=== PATIENT | male | born 1995 | race Caucasian/White ===

== ENCOUNTER 2023-12-29 06:30 | Day surgery (SDC) | payer OTHER ==
[~2023-12-29] VITALS: Ht 175.3 cm; Wt 85.4 kg
[2023-12-29] VITALS (7 sets, daily range): BP systolic 101–127; BP diastolic 56–84; PULSE 52–60; TEMP 97.3–97.8
[~2023-12-29 06:30] MED LIST: PRILOSEC 20MG20 MG PO
[2023-12-29] MEDS ORDERED: Famotidine 20 MG TAB PO SCH (07:00)
[2023-12-29] MEDS ORDERED: LR 1,000 ML IV SCH (07:00)
[2023-12-29] MEDS ORDERED: fentaNYL 50 MCG/ML 2 ML VIAL ONE ×2 (07:29→09:02)
[2023-12-29] MEDS ORDERED: NS 10 ML IV ONE (07:29)
[2023-12-29] MEDS ORDERED: Ondansetron 4 MG/2 ML VIAL ONE (07:29)
[2023-12-29] MEDS ORDERED: dexAMETHasone 10 MG/ML VIAL ONE (07:29)
[2023-12-29] MEDS ORDERED: fentaNYL 50 MCG/ML 2 ML VIAL IV PRN ×2 (08:45)
[2023-12-29] MEDS ORDERED: hydrALAZINE 20 MG/ML 1 ML VIAL IV PRN (08:45)
[2023-12-29] MEDS ORDERED: droPERidol 2.5 MG/ML 2 ML VIAL IV PRN (08:45)
[2023-12-29] MEDS ORDERED: Ondansetron 4 MG/2 ML VIAL IV PRN (08:45)
[2023-12-29] MEDS ORDERED: HYDROmorphone 2 MG/1 ML VIAL IV PRN (08:45)
[2023-12-29] MEDS ORDERED: Ketorolac 15 MG/ML VIAL IV PRN (09:00)
[2023-12-29] MEDS ORDERED: oxyCODONE/Acetaminophen 5-325 MG TAB PO PRN (09:00)
[2023-12-29] MEDS ORDERED: PERCOCET 325 MG1 TA2 PO (09:47)
--- NOTE | 2023-12-29 17:47 | NUR ---
[id number]: PT TO RECOVERY BAY FROM PACU S/P RIGHT SPERMATIC CORD DENERVATION A&O, PLACED ON MONITOR, VSS ON RA RECEIVED REPORT AND ASSUMED CARE OF PT [facility]. 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 D/C INSTRUCTIONS, FOLLOW UP REVIEWED AND HANDED TO PT. ALL QUESTIONS AND CONCERNS ADDRESSED TO PT SATISFACTION. TAKEN TO EXIT VIA W/C WITH ALL BELONGINGS AND PAPERWORK IN HAND, ASSISTED INTO PASSENGER SEAT OF POV. [address] HOME.
== END 2023-12-29 11:50 | disposition home or self-care (01) ==
LOC: SDCO 06:30
DX: N50.811 Right testicular pain (principal); K21.9 Gastro-esophageal reflux disease without esophagitis; F17.220 Nicotine dependence, chewing tobacco, uncomplicated; F17.290 Nicotine dependence, other tobacco product, uncomplicated; Z79.899 Other long term (current) drug therapy
CPT/HCPCS: J0690; J1100; J1885; J2405; J2704; J3010; J7120